=== PATIENT | male | born 1965 | race Caucasian/White ===

== ENCOUNTER 2018-03-16 09:01 | Day surgery (SDC) | payer MEDICAID ==
[~2018-03-16] VITALS: Ht 172.7 cm; Wt 81.6 kg
--- NOTE | ~2018-03-16 | OP ---
PATIENT NAME: IRAIDA CORDOBA MEDICAL RECORD: [id number] :67 LOCATION:[facility] ADMISSION DATE: SURGEON: JEUSS BOWERS MD DATE OF OPERATION: 03/16/2018 PREOPERATIVE DIAGNOSIS: Recurrent rotator cuff tear of the left shoulder. POSTOPERATIVE DIAGNOSIS: Recurrent rotator cuff tear of the left shoulder. PROCEDURE: Arthroscopic rotator cuff repair. SURGEON: Jesus Bowers MD ANESTHESIA: General. INTRAOPERATIVE COMPLICATIONS: None. SUMMARY OF PATHOLOGIC FINDINGS: The patient had rotator cuff tear at the anterior aspect of the supraspinatus tendon where the patient had previously had a biceps tenodesis. There were some residual sutures from what appeared to be long ago. OPERATIVE SUMMARY IN DETAIL: After obtaining the appropriate preoperative orthopaedic surgery consent as well as anesthetic consultation, evaluation, and clearance, the patient was brought to the operating room and placed on the operating table in the supine position. After general laryngeal mask airway was administered, the patient was placed in a right lateral decubitus position. All pressure points were well padded to include down leg peroneal pad as well as axillary roll. The patient was held firmly to the operating table using the vacuum pack suction system. Left upper extremity and shoulder were then prepped and draped in routine sterile fashion. The arm was held in the [employer] traction boom at 30 degrees of forward flexion, 30 degrees of abduction, and 10 pounds of traction laterally. Arthroscopy was established in the glenohumeral joint from posterior portal. Anterior portal was established in anterior safe interval. Diagnostic arthroscopy revealed the patient to have had previous labral problems as well as biceps relocation. The rotator cuff tearing was found at the anterior aspect of the supraspinatus tendon. Attention was then turned to the subacromial space. While in the subacromial space, rotator cuff was identified. Decortication was carried out and the arthroscopic pick from [employer] was utilized to create a good bleeding bed. An inverted #2 FiberTape was then placed across the rotator cuff and then anchored laterally with a 4.75 anchor from [employer]. Having completed this, arthroscopy portals were closed in routine interrupted fashion using 4-0 Prolene. Sterile dressings were applied. The patient was awakened and taken to the recovery room in stable condition. All final needle and sponge counts were correct. TRANSINT:[id number] Voice Confirmation ID: [id number] DOCUMENT ID: [id number] OPERATIVE REPORT [id number] IRAIDA CORDOBA MD, JESUS ECHEVERRIA at 1340 CC: [id number] DICTATION DATE: 03/16/18 1524 FIELD REVIEWER: 03/16/18 1543 [facility] 03/16/18 [place] [id number] [place] [id number]
[~2018-03-16 09:01] MED LIST: ATIVAN1 MG PO; KLONOPIN1 MG PO; PRINIVIL20 MG PO; TENORMIN25 MG PO; ZOCOR40 MG PO
[2018-03-16 09:27] LABS: HEMATOCRIT 45.2 % (42.0-54.0); HEMOGLOBIN 15.3 g/dL (13.5-17.5); MCH 28.6 pg (26.0-34.0); MCHC 33.8 g/dL (31.0-37.0); MCV 84.5 fL (80.0-100.0); MEAN PLATELET VOLUME 8.8 fL (7.4-10.4); RBC 5.35 10x6/uL (4.20-6.10); RDW 15.8 % (11.5-14.5); WBC 8.5 10x3/uL (4.8-10.8)
[2018-03-16 10:38] VITALS: BP 104/66; Ht 172.7 cm; Wt 81.6 kg
[2018-03-16] MEDS ORDERED: HYDROCODONE-APA1 TAB PO (13:38)
== END 2018-03-16 15:39 | disposition home or self-care (01) ==
LOC: D.OPS 09:01 → D.PAN 11:45 → D.OPS 15:39 → D.PAN 16:45
PROVIDERS: Anesthesiology
DX: M75.112 Incomplete rotator cuff tear or rupture of left shoulder, not specified as traumatic (principal); Z01.812 Encounter for preprocedural laboratory examination

== ENCOUNTER → 2020-02-25 10:58 | Outpatient (CLI) | payer MEDICAID ==
[~2020-02-25 10:58] MED LIST changes: +HYDROCODONE-APA1 TAB PO
== END | disposition home or self-care (01) ==
LOC: D.MRI 10:58
PROVIDERS: ATTEND Clinical Nurse Specialist Family Health
DX: M25.511 Pain in right shoulder (principal)

== ENCOUNTER 2020-05-10 08:00 | Outpatient (CLI) | payer MEDICAID ==
[2018-03-16 10:38] VITALS: Ht 172.7 cm; Wt 83.9 kg
[~2020-05-10] VITALS: Ht 172.7 cm; Wt 83.9 kg
[2020-05-10] MEDS ORDERED: NORCO 7.5-3251 EACH PO (10:31)
[2020-05-10 11:37] LABS: HEMATOCRIT 49.5 % (42.0-54.0); HEMOGLOBIN 16.8 g/dL (13.5-17.5); MCH 28.2 pg (26.0-34.0); MCHC 33.9 g/dL (31.0-37.0); MCV 83.2 fL (80.0-100.0); MEAN PLATELET VOLUME 8.8 fL (7.4-10.4); RBC 5.95 10x6/uL (4.20-6.10); RDW 15.7 % (11.5-14.5); WBC 9.2 10x3/uL (4.8-10.8)
== END 2020-05-10 08:01 | disposition home or self-care (01) ==
LOC: D.PAN 08:00 → D.OPS 05-15 07:30 → EDSTATUS 05-15 09:00 → D.PAN 05-15 09:00 → D.OPS 05-15 09:00
PROVIDERS: Anesthesiology; ATTEND Orthopaedic Surgery
DX: M25.511 Pain in right shoulder (principal); M75.101 Unspecified rotator cuff tear or rupture of right shoulder, not specified as traumatic; S43.431A Superior glenoid labrum lesion of right shoulder, initial encounter; M75.41 Impingement syndrome of right shoulder